=== PATIENT | male | born 1960 | race Caucasian/White ===

== ENCOUNTER → 2024-02-20 08:53 | Outpatient (REF) | payer OTHER, SELFPAY ==
[2024-02-20 08:59] LABS: % Basophils 0.5 % (0-2); % Immature Granulocytes 0.5 % (0-0.5); % Monocytes 17.8 % (1.7-9.3); % Neutrophils 48.2 % (42.2-75.2); Absolute Lymphocytes 0.6 10^3/uL (1.2-3.4); Absolute Monocytes 0.4 10^3/uL (0.1-0.6); Hematocrit 37.7 % (39.0-52.0); Hemoglobin 12.9 g/dL (13.0-18.0); Mean Corp Hgb Conc. 34.2 g/dL (33.0-37.0); Mean Corpuscular Hgb 27.7 pg (27.0-31.0); Mean Corpuscular Volume 80.9 fL (80.0-94.0); Mean Platelet Volume 9.4 fL (7.4-10.4); Platelet Count 104 10^3/uL (130-400); Red Blood Cell Count 4.66 10^6/uL (4.70-6.10); Red Cell Dist. Width 14.4 % (11.5-14.5)
== END ==
LOC: OIDL 08:53
PROVIDERS: ATTENDING PHYSICIAN Internal Medicine Hematology & Oncology
DX: D72.819 Decreased white blood cell count, unspecified (principal)
CPT/HCPCS: 85025

== ENCOUNTER → 2024-02-26 07:20 | Outpatient (REF) | payer OTHER, SELFPAY | LOC: HWRAD 07:20 | PROVIDERS: ATTENDING PHYSICIAN Internal Medicine Hematology & Oncology; FAMILY PHYSICIAN Internal Medicine Geriatric Medicine; OTHER PHYSICIAN Otolaryngology; REFERRING PHYSICIAN Radiology Radiation Oncology | DX: D72.9 Disorder of white blood cells, unspecified (principal); D70.9 Neutropenia, unspecified; C76.0 Malignant neoplasm of head, face and neck | CPT/HCPCS: 76536 ==

== ENCOUNTER → 2024-03-27 12:28 | Outpatient (REF) | payer OTHER, SELFPAY ==
[2024-03-27 12:47] VITALS: BP 165/90; BP_SYST 65
== END ==
LOC: RADI 12:28
PROVIDERS: ATTENDING PHYSICIAN Internal Medicine Hematology & Oncology; FAMILY PHYSICIAN Internal Medicine Geriatric Medicine
DX: R22.1 Localized swelling, mass and lump, neck (principal); C09.9 Malignant neoplasm of tonsil, unspecified; D72.819 Decreased white blood cell count, unspecified; D70.9 Neutropenia, unspecified; D68.9 Coagulation defect, unspecified; C76.0 Malignant neoplasm of head, face and neck; C77.9 Secondary and unspecified malignant neoplasm of lymph node, unspecified; D50.9 Iron deficiency anemia, unspecified; D51.9 Vitamin B12 deficiency anemia, unspecified
CPT/HCPCS: 88172; 88173; 38505; 76942; 88177

== ENCOUNTER → 2024-07-08 06:23 | Day surgery (SDC) | payer MEDICARE, OTHER, SELFPAY | LOC: GI 06:23 | PROVIDERS: ATTENDING PHYSICIAN Internal Medicine Gastroenterology | DX: K57.30 Diverticulosis of large intestine without perforation or abscess without bleeding (principal); K64.8 Other hemorrhoids; R19.4 Change in bowel habit | CPT/HCPCS: 45380; 88305 ==

== ENCOUNTER → 2025-01-11 16:20 | Outpatient (REF) | payer MEDICARE, OTHER, SELFPAY | LOC: HWRAD 16:20 | PROVIDERS: ATTENDING PHYSICIAN Nurse Practitioner Family | DX: G89.29 Other chronic pain (principal); M25.561 Pain in right knee | CPT/HCPCS: 73564 ==

== ENCOUNTER → 2025-08-17 07:06 | Outpatient (REF) | payer MEDICARE, OTHER, SELFPAY | LOC: HWRAD 07:06 | PROVIDERS: ATTENDING PHYSICIAN Podiatrist Foot & Ankle Surgery; FAMILY PHYSICIAN Internal Medicine Geriatric Medicine | DX: M19.072 Primary osteoarthritis, left ankle and foot (principal); M19.071 Primary osteoarthritis, right ankle and foot | CPT/HCPCS: 73630 ==